=== PATIENT | male | born 1960 | race Caucasian/White ===

== ENCOUNTER 2020-03-27 01:57 | Emergency (ER) | payer OTHER ==
[~2020-03-27] VITALS: Ht 190.5 cm; Wt 230.0 kg
[2020-03-27] MEDS ORDERED: CEFTRIAXONE PMX 1GM/50ML 50 ML IVPB ONE (02:00)
[2020-03-27] MEDS ORDERED: DEXAMETHASONE 4 MG/ML, 1ML IVPush ONE (02:00)
[2020-03-27 02:34] LABS: BASOPHILS % (AUTO) 0 % (0-1); EOSINOPHILS % (AUTO) 0 % (1-7); LYMPHOCYTES % (AUTO) 23 % (22-44); MEAN CORPUSCULAR HEMOGLOBIN 29.7 pg (27.5-34.5); MEAN CORPUSCULAR HGB CONC 34.5 g/dL (33.2-36.2); MEAN PLATELET VOLUME 8.8 fL (7.4-10.4); MONOCYTES % (AUTO) 6 % (2-9); NEUTROPHILS % (AUTO) 71 % (42-75); PLATELET COUNT 172 x10^3/uL (130-400); RED BLOOD COUNT 5.36 x10^6/uL (4.38-5.82); RED CELL DISTRIBUTION WIDTH 14.1 % (9.4-14.8)
[2020-03-27 02:38] LABS: MD NO
[2020-03-27 02:42] LABS: ALANINE AMINOTRANSFERASE 31 U/L (12-78); ALBUMIN 3.2 g/dL (3.4-5.0); ANION GAP 11 mmol/L (5-15); CALCIUM 8.2 mg/dL (8.5-10.1); CHLORIDE 97 mmol/L (98-107); CREATININE 1.41 mg/dL (0.7-1.3)
[2020-03-27] MEDS ORDERED: DEXAMETHASONE 4 MG/ML, 1ML ONE (02:45)
[2020-03-27] MEDS ORDERED: CEFTRIAXONE PMX 1GM/50ML 50 ML ONE (02:46)
[2020-03-27 02:47] LABS: ALKALINE PHOSPHATASE 78 U/L (45-117); BILIRUBIN,TOTAL 1.1 mg/dL (0.2-1.0); TOTAL PROTEIN 7.7 g/dL (6.4-8.2)
[2020-03-27 02:48] LABS: D-DIMER (DIC) 0.59 ug/mlFEU (0.00-0.52); PROTIME 11.2 Seconds (9.6-11.5)
[2020-03-27 02:52] VITALS: BP 122/71
[2020-03-27] MEDS ORDERED: AZITHROMYCIN 500 MG TABLET PO/NG ONE (03:00)
[2020-03-27] MEDS ORDERED: AZITHROMYCIN 500 MG TABLET ONE (03:04)
== END 2020-03-27 04:07 | disposition home or self-care (01) ==
LOC: ED 02:27
DX: R05 Cough (principal); Z20.828 Contact with and (suspected) exposure to other viral communicable diseases; R50.9 Fever, unspecified; R53.1 Weakness; M79.10 Myalgia, unspecified site; R00.0 Tachycardia, unspecified; I49.3 Ventricular premature depolarization; F17.210 Nicotine dependence, cigarettes, uncomplicated
CPT/HCPCS: 36415; 71045; 80053; 82728; 83605; 83615; 83735; 84145; 85025; 85049; 85379; 85384; 85610; 85730; 86140; 87040; 87635; 93005; 96365; 96366; 96375; 99285; 99406; J0696; J1100